=== PATIENT | male | born 1980 | race Caucasian/White ===

== ENCOUNTER 2016-06-24 12:38 | Inpatient (IN) | payer MEDICAID, OTHER ==
[~2016-06-24] VITALS: Ht 182.9 cm; Wt 98.2 kg
[2016-06-24] MEDS ORDERED: MET500 PO (13:40)
[2016-06-24] MEDS ORDERED: CLON.5 PO (13:40)
[2016-06-24] MEDS ORDERED: ACET500C4 PO (13:40)
[2016-06-24] MEDS ORDERED: NAPR250T2 PO (13:41)
[2016-06-24] MEDS ORDERED: GABA-529 PO (13:41)
[2016-06-24] MEDS ORDERED: OLAN10TA3 PO (13:41)
[2016-06-24] MEDS ORDERED: BACITRACIN 0.9 GM PACKET OINTMENT TP ONE (14:00)
[2016-06-24] MEDS ORDERED: PERTUSS(ACELL),DIPH,TET VAC/PF 0.5 ML VIAL IM ONE (14:15)
[2016-06-24 14:30] LABS: BASOPHILS % (AUTO) 0.5 % (0.0-2.0); EOSINOPHILS % (AUTO) 0.9 % (1.0-6.0); LYMPHOCYTES # (AUTO) 1.6 K/uL (1.0-4.8); LYMPHOCYTES % (AUTO) 21.9 % (22.0-44.0); MEAN CORPUSCULAR HEMOGLOBIN 29.5 pg (26.0-34.0); MEAN CORPUSCULAR HGB CONC 33.4 G/dL (31.0-37.0); MEAN CORPUSCULAR VOLUME 88 fL (80-100); MONOCYTES # (AUTO) 0.4 K/uL (0.1-1.0); MONOCYTES % (AUTO) 5.8 % (2.0-9.0); NEUTROPHILS # (AUTO) 5.1 K/uL (1.8-7.7); NEUTROPHILS % (AUTO) 70.9 % (40.0-70.0); PLATELET COUNT (AUTO) 203 K/uL (150-450); RED BLOOD CELL COUNT(AUTO) 4.75 MIL/uL (4.50-5.90); RED CELL DISTRIBUTION WIDTH 13.4 % (11.5-14.5); WHITE BLOOD COUNT (AUTO) 7.3 K/uL (4.5-11.0)
[2016-06-24 14:39] LABS: ANION GAP 4 mmol/L (8-16); CALCIUM, TOTAL 9.2 mg/dL (8.8-10.5); CARBON DIOXIDE 28 mmol/L (22-29); CHLORIDE 103 mmol/L (98-107); GLOMERULAR FILTR. RATE CALC > 60 mL/min (>60); POTASSIUM 4.2 mmol/L (3.5-5.1); SODIUM SERUM 135 mmol/L (136-145); UREA NITROGEN, BLOOD 12 mg/dL (7-18)
[2016-06-24 14:41] LABS: SALICYLATE 0.8 mg/dL (2.8-20.0)
[2016-06-24 14:44] LABS: ACETAMINOPHEN < 2 mcg/mL (10-30)
[2016-06-24 14:46] LABS: ALANINE AMINOTRANSFERASE 199 U/L (12-78); ALBUMIN 4.5 g/dL (3.4-5.0); ASPARTATE AMINOTRANSFERASE 70 U/L (15-37); BILIRUBIN,TOTAL 0.5 mg/dL (0.1-1.0); TOTAL PROTEIN, SERUM 7.8 g/dL (6.4-8.2)
[2016-06-24] MEDS ORDERED: ZOLPIDEM TARTRATE 10 MG TABLET PO PRN (15:30)
[2016-06-24] MEDS ORDERED: OLANZapine 5 MG RAPDIS TABLET PO PRN (15:30)
[2016-06-24] MEDS ORDERED: LORazepam 2 MG TABLET PO PRN (15:30)
[2016-06-24 17:30] VITALS: BP 134/73
[2016-06-24] MEDS ORDERED: INFLUENZA VIRUS VACCINE QVS 2016-17 (3YR+)/PF 60 MCG/0.5 ML SYRINGE IM ONE (18:45)
[2016-06-25 06:24] VITALS: BP 132/79
[2016-06-25] MEDS ORDERED: CloNIDine HCL 0.1 MG TABLET PO PRN (08:00)
[2016-06-25] MEDS ORDERED: ONDANSETRON HCL 4 MG TABLET PO PRN (08:00)
[2016-06-25] MEDS ORDERED: IBUPROFEN 600 MG TABLET PO PRN (08:00)
[2016-06-25] MEDS ORDERED: ACETAMINOPHEN 325 MG TABLET PO PRN (08:00)
[2016-06-25] MEDS ORDERED: BACITRACIN 28.4 GM OINTMENT TP PRN (08:00)
[2016-06-25] MEDS ORDERED: PETROLATUM,WHITE 71 GM JELLY TP PRN (08:00)
[2016-06-25] MEDS ORDERED: ALBUTEROL SULFATE HFA 90 MCG/PUFF 8 GM INHALER IH PRN (08:00)
[2016-06-25] MEDS ORDERED: MAG HYDROX/AL HYDROX/SIMETH ES 30 ML SUSPENSION UDCUP PO PRN (08:00)
[2016-06-25] MEDS ORDERED: BENZOCAINE/MENTHOL LOZENGE MM PRN (08:00)
[2016-06-25] MEDS ORDERED: MAGNESIUM HYDROXIDE SUSPENSION 30 ML UDCUP PO PRN (08:00)
[2016-06-25] MEDS ORDERED: LOPERAMIDE HCL 2 MG CAPSULE PO PRN (08:00)
[2016-06-25 08:23] VITALS: BP 144/90
[2016-06-25 08:29] LABS: ALANINE AMINOTRANSFERASE 193 U/L (12-78); ALBUMIN 4.4 g/dL (3.4-5.0); ASPARTATE AMINOTRANSFERASE 66 U/L (15-37); BILIRUBIN,TOTAL 0.9 mg/dL (0.1-1.0); TOTAL PROTEIN, SERUM 7.8 g/dL (6.4-8.2)
[2016-06-25 09:09] LABS: ACETAMINOPHEN < 2 mcg/mL (10-30)
[2016-06-25] MEDS: BACITRACIN 28.4 GM OINTMENT TP SCH ×2 (10:47→16:27)
[2016-06-25 11:45] VITALS: BP 119/61
[2016-06-25 16:02] VITALS: BP 136/87
[2016-06-25] MEDS: GABAPENTIN 100 MG CAPSULE PO SCH (16:27)
[2016-06-25] MEDS ORDERED: OLANZapine 10 MG TABLET PO SCH (21:00)
[2016-06-26 01:35] VITALS: BP 119/61
[2016-06-26 08:18] VITALS: BP 139/74
[2016-06-26] MEDS: GABAPENTIN 100 MG CAPSULE PO SCH (08:36)
[2016-06-26] MEDS: BACITRACIN 28.4 GM OINTMENT TP SCH (08:36)
[2016-06-26 09:41] LABS: CHOL/HDL RATIO 3.7 (4.2-7.3); THYROID STIMULATING HORMONE 2.22 uIU/mL (0.36-3.74)
[2016-06-26] MEDS ORDERED: OLAN10TA3 PO (12:22)
[2016-06-27 11:39] LABS: HEPATITIS Bs ANTIGEN SCREEN P Negative (Negative); HEPATITIS C AB SCREEN <0.1 s/co ratio (0.0-0.9)
== END 2016-06-26 13:00 | disposition home or self-care (01) | DRG 751 ==
LOC: EEVIPCON 12:38 → EMS 12:39 → B2S 15:56 → B3A 15:56 → B2S 19:42
PROVIDERS: ADMIT Psychiatry & Neurology Psychiatry; ATTEND Psychiatry & Neurology Psychiatry
PROC: 3E0234Z Introduction of Serum, Toxoid and Vaccine into Muscle, Percutaneous Approach (ICD-10-PCS; principal; 2016-06-24)
DX: F29 Unspecified psychosis not due to a substance or known physiological condition (principal); E87.1 Hypo-osmolality and hyponatremia; R45.851 Suicidal ideations; M41.9 Scoliosis, unspecified; F41.9 Anxiety disorder, unspecified; G47.00 Insomnia, unspecified; R74.0 Nonspecific elevation of levels of transaminase and lactic acid dehydrogenase [LDH]; T42.8X2A Poisoning by antiparkinsonism drugs and other central muscle-tone depressants, intentional self-harm, initial encounter; S51.811A Laceration without foreign body of right forearm, initial encounter; F17.210 Nicotine dependence, cigarettes, uncomplicated; Z23 Encounter for immunization; Z79.899 Other long term (current) drug therapy; Z72.89 Other problems related to lifestyle; Z71.41 Alcohol abuse counseling and surveillance of alcoholic; Z71.6 Tobacco abuse counseling; W45.8XXA Other foreign body or object entering through skin, initial encounter; Y93.89 Activity, other specified; Y92.89 Other specified places as the place of occurrence of the external cause; Y99.8 Other external cause status
CPT/HCPCS: 80074; 82306; 84295; 84443; 90715; 96372; 99285; G0480; G0481

== ENCOUNTER 2023-01-10 22:48 | Inpatient (IN) | payer MEDICAID, OTHER ==
[~2023-01-10] VITALS: Ht 185.4 cm; Wt 78.3 kg
[~2023-01-10 22:48] MED LIST: GABA-1216 PO; OLAN10TA74 PO
[2023-01-11 00:38] LABS: BASOPHILS % (AUTO) 0.4 % (0.0-2.0); EOSINOPHILS % (AUTO) 0.9 % (1.0-6.0); HEMATOCRIT 41.5 % (41-53); HEMOGLOBIN 14.1 g/dL (13.5-17.5); LYMPHOCYTES # (AUTO) 2.3 K/uL (1.0-4.8); MEAN CORPUSCULAR HEMOGLOBIN 31.5 pg (26.0-34.0); MEAN CORPUSCULAR VOLUME 93 fL (80-100); MONOCYTES # (AUTO) 0.5 K/uL (0.1-1.0); MONOCYTES % (AUTO) 7.6 % (2.0-9.0); NEUTROPHILS # (AUTO) 3.7 K/uL (1.8-7.7); NEUTROPHILS % (AUTO) 56.1 % (40.0-70.0); PLATELET COUNT (AUTO) 270 K/uL (150-450); RED BLOOD CELL COUNT(AUTO) 4.48 MIL/uL (4.50-5.90); RED CELL DISTRIBUTION WIDTH 13.3 % (11.5-14.5); WHITE BLOOD COUNT (AUTO) 6.6 K/uL (4.5-11.0)
[2023-01-11 00:46] LABS: ANION GAP 10 mmol/L (8-16); CALCIUM, TOTAL 9.1 mg/dL (8.8-10.5); CARBON DIOXIDE 27 mmol/L (22-29); CHLORIDE 105 mmol/L (98-107); CREATININE 0.97 mg/dL (0.60-1.30); GLOMERULAR FILTR. RATE CALC > 60 mL/min (>60); GLUCOSE,RANDOM 99 mg/dL (70-110); POTASSIUM 3.6 mmol/L (3.5-5.1); SODIUM SERUM 142 mmol/L (136-145); UREA NITROGEN, BLOOD 8 mg/dL (7-18)
[2023-01-11 00:52] LABS: ALBUMIN 4.2 g/dL (3.4-5.0); ALKALINE PHOSPHATASE 53 U/L (46-116); ASPARTATE AMINOTRANSFERASE 17 U/L (15-37); BILIRUBIN,TOTAL 0.2 mg/dL (0.1-1.0); TOTAL PROTEIN, SERUM 7.2 g/dL (6.4-8.2)
[2023-01-11 00:53] LABS: ALCOHOL, BLOOD (SERUM) 124 mg/dL (0-10)
[2023-01-11] MEDS ORDERED: LORazepam 2 MG TABLET PO PRN (01:00)
[2023-01-11] MEDS ORDERED: HALOPERIDOL 5 MG TABLET PO PRN (01:00)
[2023-01-11] MEDS ORDERED: ZOLPIDEM TARTRATE 10 MG TABLET PO PRN (01:00)
[2023-01-11 01:06] LABS: ALANINE AMINOTRANSFERASE 16 U/L (12-78)
[2023-01-11 02:06] LABS: COVID AG,FIA SOURCE NASAL SWAB
[2023-01-11 02:18] LABS: SARS-COV2 (COVID) ANTIGEN,FIA Negative (Negative)
[2023-01-11 03:41] LABS: APPEARANCE,URINE HAZY (CLEAR); BILIRUBIN,URINE NEGATIVE (NEGATIVE); COLOR,URINE LIGHT YELLOW (YELLOW); GLUCOSE, URINE (UA) NEGATIVE (NEGATIVE); KETONES,URINE NEGATIVE (NEGATIVE); LEUKOCYTE ESTERASE ,URINE NEGATIVE (NEGATIVE); NITRATE,URINE NEGATIVE (NEGATIVE); OCCULT BLOOD,URINE NEGATIVE (NEGATIVE); PH,URINE 5.5 (5.0-8.0); PROTEIN,URINE 30-70 mg/dL (NEGATIVE); SPECIFIC GRAVITIY, URINE 1.013 (1.003-1.030); UROBILINOGEN,URINE <=1.0 mg/dL (<=1.0)
[2023-01-11 03:44] LABS: ALCOHOL, URINE DRUG SCREEN POSITIVE (NEGATIVE); AMPHET/METH SCREEN,URINE NEGATIVE (NEGATIVE); BARBITURATE SCREEN, URINE NEGATIVE (NEGATIVE); BENZODIAZEPINES SCREEN,URINE NEGATIVE (NEGATIVE); CANNABINOID SCREEN,URINE NEGATIVE (NEGATIVE); COCAINE SCREEN,URINE NEGATIVE (NEGATIVE); METHADONE SCREEN, URINE NEGATIVE (NEGATIVE); OPIATE SCREEN,URINE NEGATIVE (NEGATIVE); PHENCYCLIDINE SCREEN,URINE NEGATIVE (NEGATIVE)
[2023-01-12 11:44] VITALS: BP 145/87; PULSE 69; RESP 18; TEMP 98.3; O2SAT 100
[2023-01-12] MEDS ORDERED: PNEUMOCOCCAL VACCINE POLYVALENT 0.5 ML SYRINGE [PPSV23] IM. ONE (12:15)
[2023-01-12] MEDS ORDERED: MAG HYDROX/AL HYDROX/SIMETH ES 30 ML SUSPENSION UDCUP PO PRN (12:45)
[2023-01-12] MEDS ORDERED: PETROLATUM,WHITE 28 GM JELLY TP PRN (12:45)
[2023-01-12] MEDS ORDERED: MAGNESIUM HYDROXIDE SUSPENSION 30 ML UDCUP PO PRN (12:45)
[2023-01-12] MEDS ORDERED: ONDANSETRON HCL 4 MG TABLET PO PRN (12:45)
[2023-01-12] MEDS ORDERED: ACETAMINOPHEN 325 MG TABLET PO PRN (12:45)
[2023-01-12] MEDS ORDERED: DOCUSATE SODIUM 100 MG CAPSULE PO PRN (12:45)
[2023-01-12] MEDS ORDERED: GuaiFENesin/D-METHORPHAN [SUGAR-FREE] 200-20MG/10 ML SYRUP UDCUP PO PRN (12:45)
[2023-01-12] MEDS ORDERED: IBUPROFEN 400 MG TABLET PO PRN (12:45)
[2023-01-12] MEDS ORDERED: CloNIDine HCL 0.1 MG TABLET PO PRN (12:45)
[2023-01-12] MEDS ORDERED: NICOTINE 14 MG/24 HOUR PATCH TD PRN (12:45)
[2023-01-12] MEDS ORDERED: ALBUTEROL SULFATE HFA 90 MCG/PUFF 8 GM INHALER IH PRN (12:45)
[2023-01-12] MEDS ORDERED: LOPERAMIDE HCL 2 MG CAPSULE PO PRN (12:45)
[2023-01-12] MEDS ORDERED: OLANZapine 10 MG TABLET PO SCH (21:00)
[2023-01-12 22:25] VITALS: BP 139/81; PULSE 72; RESP 18; TEMP 97.9
[2023-01-13 06:34] LABS: HEMOGLOBIN A1C 5.2 % (3.8-5.6)
[2023-01-13 06:58] LABS: THYROID STIMULATING HORMONE 2.96 uIU/mL (0.36-3.74)
[2023-01-13 07:27] LABS: CHOL/HDL RATIO 3.1 (4.2-7.3)
[2023-01-13 09:53] VITALS: BP 115/73; PULSE 73; RESP 18; TEMP 97.9; O2SAT 98
== END 2023-01-13 15:30 | disposition home or self-care (01) | DRG 750 ==
LOC: EMS 22:51 → 3EI 01-12 09:47
PROVIDERS: ADMIT Psychiatry & Neurology Child & Adolescent Psychiatry; ATTEND Psychiatry & Neurology Child & Adolescent Psychiatry
DX: F25.9 Schizoaffective disorder, unspecified (principal); R45.851 Suicidal ideations; Z20.822 Contact with and (suspected) exposure to COVID-19; M41.9 Scoliosis, unspecified; F17.210 Nicotine dependence, cigarettes, uncomplicated
CPT/HCPCS: 80053; 80061; 80307; 83036; 84443; 85025; 99285; G0480